=== PATIENT | male | born 1980 | race American Indian/Alaskan Native ===

== ENCOUNTER 2018-03-10 09:34 | Outpatient (CLI) | payer OTHER ==
--- NOTE | 2018-03-10 10:54 | XRay Report ---
Left knee 2 views: History: Left knee pain. Severe injury. Next Findings: No bony or articular abnormality. No fracture dislocation or soft tissue calcification. Impression: Essentially negative left knee.
--- NOTE | 2018-03-10 10:54 | XRay Report ---
Right hip 2 views: History: Right hip pain. Findings: Suspicion of mild arthritic change superior lateral aspect of hip joint. No fracture dislocation or soft tissue calcification. Impression: Suspicion of mild arthritic changes right hip.
== END 2018-03-10 09:35 | disposition home or self-care (01) ==
LOC: XRAY 09:34
PROVIDERS: ATTEND Internal Medicine
DX: M25.562 Pain in left knee (principal)